=== PATIENT | female | born 1955 | race Caucasian/White ===

== ENCOUNTER 2018-05-08 07:11 | Day surgery (SDC) | payer OTHER ==
[2018-05-08] MEDS ORDERED: LACTATED RINGERS 1,000 ML IV ONE (07:29)
[2018-05-08] MEDS ORDERED: LIDOCAINE 1% 50 ML MDV ONE (07:30)
[2018-05-08] MEDS ORDERED: BUPIVACAINE 0.5%-EPI 1:200000 PF 10 ML VIAL ONE (07:31)
[2018-05-08] MEDS ORDERED: ceFAZolin 2 GM/50 ML 2 GM/50 ML BAG IV ONE (07:42)
[2018-05-08] MEDS ORDERED: SODIUM CHLORIDE FLUSH 0.9% 10 ML SYRINGE ONE ×2 (08:08→09:49)
[2018-05-08] MEDS ORDERED: LIDOCAINE-MPF 2% 5 ML VIAL IM ONE (08:30)
[2018-05-08] MEDS ORDERED: MIDAZOLAM 2 MG/2 ML VIAL IVP ONE (08:30)
[2018-05-08] MEDS ORDERED: fentaNYL 100 MCG/2 ML VIAL IVP ONE (08:30)
[2018-05-08] MEDS ORDERED: PROPOFOL 200 MG/20 ML VIAL IVP ONE (08:30)
[2018-05-08] MEDS ORDERED: BUPIVACAINE 0.5%-EPI 1:200000 PF 30 ML VIAL SUBQ ONE ×2 (09:10)
[2018-05-08] MEDS ORDERED: LIDOCAINE 1% 50 ML MDV SUBQ ONE ×2 (09:10)
[2018-05-08] MEDS ORDERED: IOTHALAMATE MEGLUMINE 50 ML VIAL IVP ONE (09:42)
[2018-05-08] MEDS ORDERED: IOTHALAMATE MEGLUMINE 50 ML VIAL ONE (09:49)
[2018-05-08] MEDS ORDERED: oxyCOD/ACETAMIN 5 MG/325 MG TABLET PO ONE (10:36)
[2018-05-08 10:52] VITALS: BP 138/63
--- NOTE | 2018-05-08 11:53 | XRAY Report ---
ONE VIEW CHEST X-RAY: 05/08/2018 HISTORY: Status post port placement. COMPARISON: None. FINDINGS: Clear lungs. The heart size is normal. There is no pleural fluid or pneumothorax. There is a right Port-A-Cath in place, the tip ending in the middle to inferior, 1/3 to the superior vena cava. IMPRESSION: CLEAR LUNGS. NO UNEXPECTED FINDING STATUS POST PORT PLACEMENT. TD: 05/08/2018 10:41 [facility]
--- NOTE | 2018-05-08 11:55 | XRAY Report ---
FLUOROSCOPIC ASSISTANCE: 05/08/2018 HISTORY: Port-A-Cath placement. FINDINGS/IMPRESSION: C-arm fluoroscopic assistance is provided for Port-A-Cath placement. 19 seconds of fluoroscopy time are used. Three images are obtained. TD: 05/08/2018 10:46
--- NOTE | 2018-05-08 17:06 | OPERATIVE REPORT ---
DATE OF SERVICE: 05/08/2018 Physician: James Sanchez MD PRE-PROCEDURE DIAGNOSIS: Endometrial cancer. POST-PROCEDURE DIAGNOSIS: Endometrial cancer. PROCEDURE PERFORMED: Placement of right internal jugular Port-A-Cath with ultrasound guidance. ANESTHESIA: Monitored anesthesia care (MAC). OPERATING SURGEON: James Sanchez MD INDICATION FOR PROCEDURE: Patient is a 62-year-old female who has endometrial cancer. She is needing IV access for chemotherapy. FINDINGS AT SURGERY: An 8-[place] single lumen PowerPort Port-A-Cath was placed via the right internal jugular vein under ultrasound guidance. The tip of the catheter was located in the distal SVC region. DESCRIPTION OF PROCEDURE: After informed consent was obtained, patient was taken to the operating room and placed in supine position. MAC anesthesia was administered. The patient's right neck and chest were then prepped and draped in usual sterile fashion. The internal jugular vein was then identified on the right side. The skin overlying the vein was then injected with local anesthesia. A location was located in the infraclavicular area several centimeters in the midclavicular area. The skin was then injected with local anesthesia. A transverse incision was then made in the skin using the scalpel and was carried down to the fascial layer using electrocautery. A pocket was then developed inferiorly. The port was then placed in the pocket and secured to the underlying fascia using interrupted 3-0 Prolene suture. The catheter was attached to the port. It was then tunneled up to the incision that was made in the neck overlying the internal jugular vein. The internal jugular vein was then identified using ultrasound. An 18-gauge needle was then inserted through this incision and into the internal jugular vein under direct vision. There was return of dark nonpulsatile blood. Guidewire was placed in the needle, and the needle was withdrawn. The catheter had been trimmed to appropriate size and flushed. A dilator and sheath was placed over the guidewire, and the guidewire and dilator was removed. The catheter was placed through the sheath, and peel-away sheath was then removed. Under fluoroscopy, the tip of the catheter was then located at the distal SVC region. There was good aspiration of blood, with it being flushed easily. Subcutaneous tissue was closed using a running 0 Vicryl suture. Skin incisions were closed using 4-0 Monocryl subcuticular stitch. Dermabond was then applied. The patient was then awakened, extubated, and taken from the operating room in stable condition. ESTIMATED BLOOD LOSS: Less than 5 mL. COMPLICATIONS: None. CONDITION OF THE PATIENT AT END OF PROCEDURE: Stable. ESTIMATED BLOOD LOSS: None. DRAINS/PACKS: None. CLASSIFICATION OF WOUND: Clean. TD: 05/08/2018 14:06 JUDY
== END 2018-05-08 07:12 | disposition home or self-care (01) ==
LOC: SDS 07:11
PROVIDERS: ATTEND Surgery
PROC: 05HM33Z Insertion of Infusion Device into Right Internal Jugular Vein, Percutaneous Approach (ICD-10-PCS; principal; 2018-05-08 08:15)
DX: C54.1 Malignant neoplasm of endometrium (principal)
CPT/HCPCS: 71045

== ENCOUNTER 2018-09-10 13:15 | Outpatient (CLI) | payer OTHER | END 2018-09-10 13:16 | disposition home or self-care (01) | LOC: CAM 13:15 | PROVIDERS: ATTEND Internal Medicine Hematology & Oncology | DX: G62.9 Polyneuropathy, unspecified (principal) | CPT/HCPCS: 97810; 97811 ==

== ENCOUNTER 2018-09-14 15:41 | Outpatient (CLI) | payer OTHER ==
[2018-09-14] MEDS ORDERED: IOPAMIDOL-300 50 ML VIAL ONE (15:49)
[2018-09-14] MEDS ORDERED: IOPAMIDOL-300 100 ML VIAL ONE (15:49)
[2018-09-14] MEDS ORDERED: IOPAMIDOL-300 50 ML VIAL PO ONE (17:10)
[2018-09-14] MEDS ORDERED: IOPAMIDOL-300 100 ML VIAL IVP ONE (17:10)
--- NOTE | 2018-09-15 02:17 | CT Report ---
Reason: MALIGNANT NEOPLASM OF MYOMETRIUM Procedure Date: 09/14/2018 Accession Number: [id number] / [id number] Procedure: CT - Abdomen/Pelvis W/ CPT Code: FULL RESULT: EXAM: CT ABDOMEN AND PELVIS WITH CONTRAST. EXAM DATE: 09/14/2018 05:06 PM. CLINICAL HISTORY: Endometrial carcinoma status post hysterectomy. Patient undergoing restaging prior to radiation therapy. COMPARISONS: None. TECHNIQUE: Routine helical CT imaging was performed through the abdomen and pelvis. IV contrast: ISOVUE 300 100 mL. Enteric contrast: No. Reconstructions: Coronal and sagittal. In accordance with CT protocol optimization, one or more of the following dose reduction techniques were utilized for this exam: automated exposure control, adjustment of mA and/or KV based on patient size, or use of iterative reconstructive technique. FINDINGS: Lung Bases: Small paraesophageal hernia. No cardiac enlargement. No effusions. Liver: Indeterminate 4 mm hypodensity in the right liver on image 20. No intrahepatic bile duct dilation. Gallbladder/Bile Ducts: Unremarkable. Spleen: Normal. Pancreas: Normal. Adrenal Glands: Normal. Kidneys: Normal. No masses or hydronephrosis. Peritoneal Cavity/Bowel: Normal. No free fluid, free air or adenopathy. No masses or acute inflammatory process. There are multiple diverticula seen which most severely affect the sigmoid colon. No wall thickening or adjacent inflammation seen. No obstruction noted. The appendix is well visualized and normal. Pelvic Organs: Uterus is absent. Normal bladder. No ascites. No collection, pelvic mass or adenopathy. Vasculature: No aneurysms or other significant abnormality. Bones: No significant abnormality. Other: None. IMPRESSION: 1. Status post hysterectomy. 2. No new adenopathy or ascites. 3. Diverticulosis. Normal appendix. No acute inflammation in the abdomen or pelvis. RADIA
== END 2018-09-14 15:42 | disposition home or self-care (01) ==
LOC: DI 15:41
PROVIDERS: ATTEND Radiology Therapeutic Radiology
DX: C54.2 Malignant neoplasm of myometrium (principal); K57.30 Diverticulosis of large intestine without perforation or abscess without bleeding; K44.9 Diaphragmatic hernia without obstruction or gangrene
CPT/HCPCS: 74177

== ENCOUNTER 2018-09-17 15:45 | Outpatient (CLI) | payer OTHER | END 2018-09-17 15:46 | disposition home or self-care (01) | LOC: CAM 15:45 | PROVIDERS: ATTEND Internal Medicine Hematology & Oncology | DX: G62.9 Polyneuropathy, unspecified (principal) | CPT/HCPCS: 97810; 97811 ==

== ENCOUNTER 2018-09-24 15:06 | Outpatient (CLI) | payer OTHER | END 2018-09-24 15:07 | disposition home or self-care (01) | LOC: CAM 15:06 | PROVIDERS: ATTEND Internal Medicine Hematology & Oncology | DX: G62.9 Polyneuropathy, unspecified (principal) | CPT/HCPCS: 97813; 97814 ==

== ENCOUNTER 2018-10-01 15:07 | Outpatient (CLI) | payer OTHER | END 2018-10-01 15:08 | disposition home or self-care (01) | LOC: CAM 15:07 | PROVIDERS: ATTEND Internal Medicine Hematology & Oncology | DX: G62.9 Polyneuropathy, unspecified (principal) | CPT/HCPCS: 97813; 97814 ==

== ENCOUNTER 2018-10-08 15:05 | Outpatient (CLI) | payer OTHER | END 2018-10-08 15:06 | disposition home or self-care (01) | LOC: CAM 15:05 | PROVIDERS: ATTEND Internal Medicine Hematology & Oncology | DX: G62.9 Polyneuropathy, unspecified (principal) | CPT/HCPCS: 97813; 97814 ==

== ENCOUNTER 2018-10-15 15:09 | Outpatient (CLI) | payer OTHER | END 2018-10-15 15:10 | disposition home or self-care (01) | LOC: CAM 15:09 | PROVIDERS: ATTEND Internal Medicine Hematology & Oncology | DX: G62.9 Polyneuropathy, unspecified (principal) | CPT/HCPCS: 97813; 97814 ==

== ENCOUNTER 2018-10-29 15:05 | Outpatient (CLI) | payer OTHER | END 2018-10-29 15:06 | disposition home or self-care (01) | LOC: CAM 15:05 | PROVIDERS: ATTEND Internal Medicine Hematology & Oncology | DX: G62.9 Polyneuropathy, unspecified (principal) | CPT/HCPCS: 97813; 97814 ==

== ENCOUNTER 2018-11-05 15:15 | Outpatient (CLI) | payer OTHER | END 2018-11-05 15:16 | disposition home or self-care (01) | LOC: CAM 15:15 | PROVIDERS: ATTEND Internal Medicine Hematology & Oncology | DX: G62.9 Polyneuropathy, unspecified (principal) | CPT/HCPCS: 97813; 97814 ==

== ENCOUNTER 2018-11-12 14:22 | Outpatient (CLI) | payer OTHER | END 2018-11-12 14:23 | disposition home or self-care (01) | LOC: CAM 14:22 | PROVIDERS: ATTEND Internal Medicine Hematology & Oncology | DX: G62.9 Polyneuropathy, unspecified (principal) | CPT/HCPCS: 97813; 97814 ==

== ENCOUNTER 2020-01-13 10:13 | Outpatient (CLI) | payer OTHER | END 2020-01-13 10:14 | disposition home or self-care (01) | LOC: LAB.S 10:13 | PROVIDERS: ATTEND Nurse Practitioner | DX: Z85.42 Personal history of malignant neoplasm of other parts of uterus (principal) | CPT/HCPCS: 36415; 86304 ==

== ENCOUNTER 2020-06-05 10:55 | Outpatient (CLI) | payer OTHER ==
--- NOTE | 2020-06-05 13:28 | CT Report ---
PROCEDURE: Low Dose Lung Cancer Screen INDICATIONS: HISTORY OF TABACCO USE TECHNIQUE: Noncontrast low-dose 5 mm thick sections acquired from the pulmonary apices to the posterior costophr enic angles. 7 mm thick coronal and sagittal MIP reformats were then acquired. For radiation dose r eduction, the following was used: automated exposure control, adjustment of mA and/or kV according t o patient size. COMPARISON: Chest single view 05/08/2018. FINDINGS: Image quality: Excellent. Lungs and pleura: Mild interstitial prominence consistent with history of long-standing smoking. No emphysematous change is found, however. Through the lung parenchyma no mass lesion is suspected. Mediastinum: Heart size is normal. No pericardial effusion. No mediastinal adenopathy by size crit eria. Thoracic aorta and central pulmonary arteries are normal in size. Esophagus is normal in claudette mari. No hiatal hernia. Bones and chest wall: No suspicious bony lesions. No vertebral body compression fractures. No axil dhruv or supraclavicular adenopathy by size criteria. The thyroid is normal in size. Abdomen: Visualized upper abdomen solid organs and bowel loops appear normal in the absence of contr ast. IMPRESSION: Normal except for mild interstitial prominence consistent with prior smoking history. Lung-RADS categ ory 1, follow-up low-dose noncontrast CT scanning in one year is recommended. Reviewed by: Hola Salinas MD on 06/05/2020 1:27 PM PDT Approved by: Hola Salinas MD on 06/05/2020 1:27 PM PDT Station ID: [id number]
== END 2020-06-05 10:56 | disposition home or self-care (01) ==
LOC: DI 10:55
PROVIDERS: ATTEND Registered Nurse
DX: Z12.2 Encounter for screening for malignant neoplasm of respiratory organs (principal); Z87.891 Personal history of nicotine dependence; Z85.42 Personal history of malignant neoplasm of other parts of uterus
CPT/HCPCS: 36415; 86304; G0297

== ENCOUNTER 2020-06-05 11:20 | Outpatient (CLI) | payer OTHER | END 2020-06-05 11:21 | disposition home or self-care (01) | LOC: LAB 11:20 | PROVIDERS: ATTEND Nurse Practitioner | DX: Z85.42 Personal history of malignant neoplasm of other parts of uterus (principal) | CPT/HCPCS: 36415; 86304 ==

== ENCOUNTER 2020-07-21 08:07 | Outpatient (CLI) | payer OTHER ==
--- NOTE | 2020-07-24 09:21 | Mammography Report ---
BILATERAL DIGITAL SCREENING MAMMOGRAM 3D/2D: 07/21/2020 CLINICAL: Routine screening. Comparison is made to exams dated: 04/03/2018 mammogram - [facility], 06/04/2005 [facility] - [facility], [facility]. The tissue of both breasts is extremely dense, which lowers the sensitivity of mammography. No significant masses, calcifications, or other findings are seen in either breast. There has been no significant interval change. IMPRESSION: NEGATIVE There is no mammographic evidence of malignancy. A 1 year screening mammogram is recommended. This exam was interpreted at Station ID: [id number]. NOTE: For mammograms, a report in lay terms will be sent to the patient. Approximately 15% of breast malignancies will not be visualized mammographically. In the management of a palpable breast mass, a negative mammogram must not discourage biopsy of a clinically suspicious lesion. Electronically Signed By: Wilver Michaels M.D., jr/trevin:07/21/2020 12:47:27 ACR BI-RADS Category 1: Negative 3341F PARENCHYMAL PATTERN: (VD) - The breast(s) demonstrate(s) extremely dense parenchyma, limiting the sen sitivity of mammography. BI-RADS CATEGORY: (1) - 1 RECOMMENDATION: (ANNUAL) - Recommend routine annual screening mammography. [id number] 1 year screening LATERALITY: (B)
== END 2020-07-21 08:08 | disposition home or self-care (01) ==
LOC: DI 08:07
PROVIDERS: ATTEND Registered Nurse
DX: Z12.31 Encounter for screening mammogram for malignant neoplasm of breast (principal)
CPT/HCPCS: 77063; 77067

== ENCOUNTER 2020-07-21 08:16 | Outpatient (CLI) | payer OTHER ==
[2020-07-21 09:30] LABS: RHEUMATOID FACTOR NEGATIVE (Negative)
[2020-07-24 10:41] LABS: ANA SCREEN NEGATIVE (NEGATIVE)
== END 2020-07-21 08:17 | disposition home or self-care (01) ==
LOC: LAB 08:16
PROVIDERS: ATTEND Registered Nurse
DX: G13.0 Paraneoplastic neuromyopathy and neuropathy (principal); M79.7 Fibromyalgia
CPT/HCPCS: 36415; 81599; 85651; 86038; 86140; 86430

== ENCOUNTER 2021-03-16 13:34 | Outpatient (CLI) | payer OTHER | END 2021-03-16 13:35 | disposition home or self-care (01) | LOC: LAB 13:34 | PROVIDERS: ATTEND Nurse Practitioner | DX: Z85.42 Personal history of malignant neoplasm of other parts of uterus (principal) | CPT/HCPCS: 36415; 86304 ==

== ENCOUNTER 2021-04-05 07:36 | Day surgery (SDC) | payer OTHER ==
[2021-04-05] MEDS ORDERED: LACTATED RINGERS 1,000 ML IV ONE ×2 (07:59→10:40)
[2021-04-05] MEDS ORDERED: MIDAZOLAM 2 MG/2 ML VIAL ONE ×2 (10:08→10:27)
[2021-04-05] MEDS ORDERED: fentaNYL 250 MCG/5 ML VIAL ONE (10:08)
[2021-04-05 11:09] VITALS: BP 125/82
== END 2021-04-05 07:37 | disposition home or self-care (01) ==
LOC: SDS 07:36
PROVIDERS: ATTEND Surgery
DX: Z12.11 Encounter for screening for malignant neoplasm of colon (principal); K57.30 Diverticulosis of large intestine without perforation or abscess without bleeding; K64.4 Residual hemorrhoidal skin tags; K64.8 Other hemorrhoids; C54.1 Malignant neoplasm of endometrium; Z87.891 Personal history of nicotine dependence; Z86.19 Personal history of other infectious and parasitic diseases
CPT/HCPCS: 45378; J3010; J7120

== ENCOUNTER 2021-04-26 13:13 | Outpatient (CLI) | payer OTHER ==
[2021-04-26 13:39] LABS: BASOPHILS % (AUTO) 0.4 %; EOSINOPHILS # (AUTO) 0.1 10^3/uL (0.0-0.7); EOSINOPHILS % (AUTO) 1.2 %; HCT - HEMATOCRIT 44.6 % (37.0-47.0); HGB - HEMOGLOBIN 14.8 g/dL (12.0-16.0); LYMPHOCYTES # (AUTO) 2.2 10^3/uL (1.5-3.5); LYMPHOCYTES % (AUTO) 32.5 %; MEAN CORPUSCULAR HEMOGLOBIN 29.6 pg (27.0-31.0); MEAN CORPUSCULAR HGB CONC 33.2 g/dL (32.0-36.0); MEAN CORPUSCULAR VOLUME 89.2 fL (81.0-99.0); MEAN PLATELET VOLUME 9.5 fL (7.9-10.8); MONOCYTES # (AUTO) 0.4 10^3/uL (0.0-1.0); MONOCYTES % (AUTO) 6.3 %; NEUTROPHILS # (AUTO) 4.1 10^3/uL (1.5-6.6); NEUTROPHILS % (AUTO) 59.3 %; PLT - PLATELET COUNT 221 10^3/uL (130-450); RED CELL DISTRIBUTION WIDTH 12.6 % (12.0-15.0); WHITE BLOOD COUNT 6.8 x10^3/uL (4.8-10.8)
[2021-04-26 13:55] LABS: ALKALINE PHOSPHATASE 69 IU/L (42-121); ALT ALANINE AMINOTRANSFERASE 17 IU/L (10-60); AST ASPARTATE AMINOTRANSFERASE 19 IU/L (10-42); BILIRUBIN,TOTAL 0.6 mg/dL (0.2-1.0); BUN - BLOOD UREA NITROGEN 18 mg/dL (6-20); CALCIUM 9.9 mg/dL (8.5-10.3); CARBON DIOXIDE - CO2 26 mmol/L (21-32); CHLORIDE 100 mmol/L (101-111); CHOL/HDL RATIO 3.1 (<4.4); CHOLESTEROL 248 mg/dL; CREATININE 0.8 mg/dL (0.4-1.0); GFR - MDRD 72 (>89); GLUCOSE 97 mg/dL (70-100); HDL CHOLESTEROL 81 mg/dL; LDL CHOLESTEROL,CALCULATED 152 mg/dL; LDL/HDL RATIO 1.9 (<4.4); POTASSIUM 4.2 mmol/L (3.5-5.0); SODIUM 136 mmol/L (135-145); TOTAL PROTEIN 7.5 g/dL (6.7-8.2); TRIGLYCERIDES 74 mg/dL; VLDL CHOLESTEROL 15 mg/dL
[2021-04-26 14:07] LABS: THYROID STIMULATING HORMONE 1.65 uIU/mL (0.34-5.60)
== END 2021-04-26 13:14 | disposition home or self-care (01) ==
LOC: LAB 13:13
PROVIDERS: ATTEND Registered Nurse
DX: D61.818 Other pancytopenia (principal); R73.9 Hyperglycemia, unspecified; Z87.891 Personal history of nicotine dependence; M79.7 Fibromyalgia
CPT/HCPCS: 36415; 80053; 80061; 83721; 84443; 85025

== ENCOUNTER 2021-08-13 13:01 | Emergency (ER) | payer OTHER ==
[2021-08-13 13:25] LABS: BASOPHILS % (AUTO) 0.4 %; EOSINOPHILS # (AUTO) 0.3 10^3/uL (0.0-0.7); EOSINOPHILS % (AUTO) 3.4 %; HCT - HEMATOCRIT 42.1 % (37.0-47.0); HGB - HEMOGLOBIN 13.9 g/dL (12.0-16.0); LYMPHOCYTES # (AUTO) 2.4 10^3/uL (1.5-3.5); LYMPHOCYTES % (AUTO) 32.6 %; MEAN CORPUSCULAR HEMOGLOBIN 29.6 pg (27.0-31.0); MEAN CORPUSCULAR VOLUME 89.6 fL (81.0-99.0); MEAN PLATELET VOLUME 9.4 fL (7.9-10.8); MONOCYTES # (AUTO) 0.5 10^3/uL (0.0-1.0); MONOCYTES % (AUTO) 7.4 %; NEUTROPHILS # (AUTO) 4.1 10^3/uL (1.5-6.6); NEUTROPHILS % (AUTO) 55.8 %; PLT - PLATELET COUNT 218 10^3/uL (130-450); RED CELL DISTRIBUTION WIDTH 12.7 % (12.0-15.0); WHITE BLOOD COUNT 7.3 x10^3/uL (4.8-10.8)
[2021-08-13 13:39] LABS: ALBUMIN 4.6 g/dL (3.2-5.5); ALBUMIN/GLOBULIN RATIO 1.6 (1.0-2.2); BILIRUBIN,TOTAL 0.7 mg/dL (0.2-1.0); CALCIUM 9.6 mg/dL (8.5-10.3); CREATININE 0.9 mg/dL (0.4-1.0); POTASSIUM 3.7 mmol/L (3.5-5.0); TOTAL PROTEIN 7.4 g/dL (6.7-8.2)
[2021-08-13] MEDS ORDERED: HYDROmorphone 0.5 MG/0.5 ML SYRINGE IVP STA (15:13)
[2021-08-13] MEDS ORDERED: ONDANSETRON 4 MG/2 ML VIAL IVP STA (15:13)
[2021-08-13] MEDS ORDERED: KETOROLAC 30 MG/ML VIAL IVP STA (15:13)
--- NOTE | 2021-08-13 15:16 | ED Physician Documentation ---
PD HPI ABD PAIN - Stated complaint Stated Complaint: ABD PX - Chief complaint Chief Complaint: Abd Pain - History obtained from History obtained from: Patient - Additional information Additional information: Patient comes emergency department chief complaint of right lower quadrant abdominal pain on and off for the last 2-1/2 days but steadily worsening. Patient states it is partly in her flank and partly in her right lower quadrant. She states she has had Mild persistent nausea, but only vomited once. No fevers. She has had a mild feeling of chills. No dysuria. No hematuria. No constipation or diarrhea. Patient still has her appendix and gallbladder, but no longer has her reproductive organs. She has a family history of urinary calculi but no personal history. No other complaints at this time. Review of Systems Ten Systems: 10 systems reviewed and negative Constitutional: reports: Reviewed and negative Eyes: reports: Reviewed and negative Ears: reports: Reviewed and negative Nose: reports: Reviewed and negative Throat: reports: Reviewed and negative Cardiac: reports: Reviewed and negative Respiratory: reports: Reviewed and negative GI: reports: Abdominal Pain, Nausea, Vomiting : reports: Reviewed and negative Skin: reports: Reviewed and negative Musculoskeletal: reports: Reviewed and negative Neurologic: reports: Reviewed and negative Psychiatric: reports: Reviewed and negative Endocrine: reports: Reviewed and negative Immunocompromised: reports: Reviewed and negative PD PAST MEDICAL HISTORY - Past Medical History Cardiovascular: None Respiratory: None Endocrine/Autoimmune: None GI: Hepatitis : None HEENT: None Psych: Claustrophobia Musculoskeletal: None Derm: None - Past Surgical History HEENT: Tonsil/Adenoidectomy - Present Medications Home Medications: Ambulatory Orders Medication Instructions Recorded Confirmed Multivitamin [Multivitamins] 1 each PO DAILY 12/28/18 12/28/18 Acetaminophen [Tylenol Extra 1,000 mg PO DAILY 04/05/21 04/05/21 Strength] HYDROcod/ACETAM 5/325 [[place] 5/325] 1 - 2 tablet PO Q6H PRN #14 tablet 08/13/21 Ondansetron Odt [Zofran Odt] 4 mg TL Q6H PRN #10 tablet 08/13/21 Tamsulosin [Flomax] 1 cap PO DAILY #7 cap 08/13/21 - Allergies Allergies/Adverse Reactions: Allergies Allergy/AdvReac Type Severity Reaction Status Date / Time Penicillins AdvReac Intermediate vomiting Verified 08/13/21 13:08 dermabond AdvReac Rash Uncoded 08/13/21 13:08 PD ED PE NORMAL - Vitals Vital signs reviewed: Yes - General General: Alert and oriented X 3, No acute distress, Well developed/nourished - HEENT HEENT: Atraumatic, PERRL, EOMI, Moist mucous membranes - Neck Neck: Supple, no meningeal sign - Cardiac Cardiac: RRR, No murmur, Strong equal pulses - Respiratory Respiratory: No respiratory distress, Clear bilaterally - Abdomen Abdomen: Soft, Non distended, Other (Moderate right flank tenderness, mild right lower quadrant tenderness) - Back Back: No spinal TTP, Other (Mild right CVA tenderness.) - Derm Derm: Normal color, Warm and dry, No rash - Extremities Extremities: No deformity, No edema - Neuro Neuro: Alert and oriented X 3, clay temperer 2-12 intact, Normal speech - Psych Psych: Normal mood, Normal affect Results - Vitals Vitals: Vital Signs - 24 hr 08/13/21 08/13/21 08/13/21 13:08 15:32 16:48 Temperature 36.5 C 36.5 C Heart Rate 60 55 L 55 L Respiratory 16 16 16 Rate Blood Pressure 160/72 H 212/97 H 180/86 H O2 Saturation 99 98 98 Oxygen O2 Source Room air - Labs Labs: Laboratory Tests 08/13/21 08/13/21 08/13/21 13:21 13:21 15:20 WBC 7.3 RBC 4.70 Hgb 13.9 Hct 42.1 MCV 89.6 MCH 29.6 MCHC 33.0 RDW 12.7 Plt Count 218 MPV 9.4 Neut # (Auto) 4.1 Lymph # (Auto) 2.4 [place] # (Auto) 0.5 Eos # (Auto) 0.3 Baso # (Auto) 0.0 Absolute Nucleated RBC 0.00 Nucleated RBC % 0.0 Sodium 140 Potassium 3.7 Chloride 103 Carbon Dioxide 26 Anion Gap 11.0 BUN 13 Creatinine 0.9 Estimated GFR (MDRD) 63 L Glucose 96 Calcium 9.6 Total Bilirubin 0.7 AST 22 ALT 24 Alkaline Phosphatase 69 Total Protein 7.4 Albumin 4.6 Globulin 2.8 Albumin/Globulin Ratio 1.6 Lipase 28 Urine Color YELLOW Urine Clarity CLEAR Urine pH 5.5 Ur Specific [place] 1.020 Urine Protein NEGATIVE Urine Glucose (UA) NEGATIVE Urine Ketones TRACE Urine Occult Blood MODERATE H Urine Nitrite NEGATIVE Urine Bilirubin NEGATIVE Urine Urobilinogen 0.2 (NORMAL) Ur Leukocyte Esterase NEGATIVE Urine RBC 6-10 H Urine WBC 0-3 Ur Squamous Epith Cells NONE SEEN Urine Bacteria None Seen Ur Microscopic Review INDICATED Urine Culture Comments NOT INDICATED - Rads (name of study) CT abdomen and pelvis Radiology: Final report received, EMP read indepedently, See rad report (3 mm Right UVJ stone obstructing.) PD MEDICAL DECISION MAKING - ED course Complexity details: reviewed results, re-evaluated patient, considered differential, d/w patient ED course: Patient was worked up with labs, which were unremarkable. CT scan of the abdomen and pelvis was also performed, and patient was treated symptomatically with IV Zofran, Dilaudid, and Toradol. Patient is found to have a small urinary calculus the distal right ureter at the UVJ. We have discussed symptomatic management and the high likelihood of passage without difficulty. We discussed conditions under which the patient should follow up with urology. Departure - Departure Disposition: 01 Home, Self Care Clinical Impression: Kidney stone on right side Condition: Stable Instructions: ED Stone Renal W Colic Follow-Up: Victor Hugo Guidry MD [Physician No Access] - Nga Cespedes MD [Provider Admit Priv/Credential] - Tripp Swift MD [Physician No Access] - iLam Garcia MD [Physician No Access] - Sebastian Urbano MD [Provider Admit Priv/Credential] - Prescriptions: Tamsulosin [Flomax] 1 cap PO DAILY #7 cap HYDROcod/ACETAM 5/325 [[place] 5/325] 1 - 2 tablet PO Q6H PRN #14 tablet PRN Reason: Pain Ondansetron Odt [Zofran Odt] 4 mg TL Q6H PRN #10 tablet PRN Reason: Nausea / Vomiting Comments: Your CT scan shows a small kidney stone that is making its way toward your bladder on the right. Fortunately, the stone has traveled most the way through the ureter, the tube that connects the kidney and bladder, and should be popping into your bladder soon. Once there, and will pass fairly easily and quickly. You may take the pain and nausea medicine as needed and also, the Flomax to help relax the smooth muscle of the tube and allow for a more free passage of the stone. It may take anywhere from some hours to several days to a week for the stone to finish passing. Once you have been pain-free for a few days, you can be fairly confident that the stone is passed. If you continue to have symptoms for more then the next couple of weeks, please follow-up with urology for further evaluation. Discharge Date/Time: 08/13/21 16:48
[2021-08-13] MEDS ORDERED: IOPAMIDOL-300 100 ML VIAL ONE (15:18)
[2021-08-13 15:37] LABS: BILIRUBIN,URINE NEGATIVE (NEGATIVE); GLUCOSE, URINE (UA) NEGATIVE (NEGATIVE); KETONES,URINE (UA) TRACE mg/dL (NEGATIVE); LEUKOCYTE ESTERASE, URINE NEGATIVE (NEGATIVE); NITRITE,URINE NEGATIVE (NEGATIVE); OCCULT BLOOD,URINE MODERATE (NEGATIVE); PH,URINE 5.5 PH (5.0-7.5); PROTEIN,URINE NEGATIVE (NEGATIVE); UROBILINOGEN,URINE 0.2 (NORMAL) E.U./dL (NORMAL)
[2021-08-13 15:38] LABS: CLARITY,URINE CLEAR (CLEAR)
[2021-08-13 15:59] LABS: BACTERIA,URINE None Seen /HPF (None Seen); SQUAMOUS EPITHELIAL CELL,UR NONE SEEN (<= Few); WBC,URINE 0-3 /HPF (0-5)
[2021-08-13] MEDS ORDERED: IOPAMIDOL-300 100 ML VIAL IVP ONE (16:03)
--- NOTE | 2021-08-13 16:14 | CT Report ---
PROCEDURE: Abdomen/Pelvis W INDICATIONS: RLQ abd pain CONTRAST: IV CONTRAST: Isovue 300 ml: 100 PO CONTRAST: Optiray 320 ml50 TECHNIQUE: After the administration of intravenous contrast, 5 mm thick sections acquired from the diaphragms to the symphysis. 5 mm thick coronal and sagittal reformats were acquired. For radiation dose reducti on, the following was used: automated exposure control, adjustment of mA and/or kV according to oscar ent size. COMPARISON: CT abdomen and pelvis 09/14/2018. FINDINGS: Image quality: Excellent. ABDOMEN: Lung bases: Lung bases are clear. Heart size is normal. Solid organs: Liver and spleen are normal in size and enhancement. Tiny cyst in the right lobe of li brea. Gallbladder is unremarkable. Biliary system is non dilated. Pancreas enhances normally. No a drenal nodules. Kidneys demonstrate normal size. There is mild right kidney hydroureteronephrosis. T here is an obstructing calculus at the right UVJ measuring 0.3 cm, (). Peritoneum and bowel: Bowel loops demonstrate normal wall thickness and caliber. Diverticulosis. Nor mal appendix. No free fluid or air. Nodes and vessels: No retroperitoneal or mesenteric adenopathy by size criteria. Aorta and inferior vena cava are normal in size. Miscellaneous: No ventral hernias. PELVIS: Genitourinary: Bladder is decompressed. Uterus is absent. Miscellaneous: No inguinal hernias or adenopathy. Bones: No suspicious bony lesions. No vertebral body compression fractures. IMPRESSION: 1. Obstructing calculus at the right UVJ measuring 0.3 cm. Mild right hydroureteronephrosis. 2. Normal appendix. No small bowel obstruction. Reviewed by: Derrick Yanes MD on 08/13/2021 3:12 PM AKDT Approved by: Derrick Yanes MD on 08/13/2021 3:12 PM AKDT Station ID: [id number]
[2021-08-13 16:49] VITALS: BP 180/86
== END 2021-08-13 16:48 | disposition home or self-care (01) ==
LOC: ED 13:01
DX: N13.2 Hydronephrosis with renal and ureteral calculous obstruction (principal)
CPT/HCPCS: 36415; 74177; 80053; 81001; 83690; 85025; 96374; 99284; J1170; Q9967; 81003; 87086

== ENCOUNTER 2021-11-08 11:55 | Outpatient (CLI) | payer OTHER | END 2021-11-08 11:56 | disposition home or self-care (01) | LOC: LAB 11:55 | PROVIDERS: ATTEND Nurse Practitioner | DX: Z85.42 Personal history of malignant neoplasm of other parts of uterus (principal); M25.50 Pain in unspecified joint; R23.4 Changes in skin texture | CPT/HCPCS: 36415; 81599; 86235; 86304 ==

== ENCOUNTER 2022-08-14 12:38 | Outpatient (CLI) | payer MEDICARE ==
--- NOTE | 2022-08-14 15:08 | CT Report ---
PROCEDURE: Low Dose Lung Cancer Screen INDICATIONS: POST MENOPAUSAL, HX OF SMOKING TECHNIQUE: Noncontrast low-dose axial images were acquired from the pulmonary apices to the posterior costophren ic angles. Multiplanar MIP reformats were then reconstructed. For radiation dose reduction, the follo wing was used: automated exposure control, adjustment of mA and/or kV according to patient size. COMPARISON: None. FINDINGS: Image quality: Excellent. Lungs and pleura: There are small nodular densities in small left lower lobe bronchi on image 256/4 as well as 260/4. These may potentially represent small mucous plugs. However, endobronchial lesions are not excluded. Another small endobronchial density is present in the right upper lobe on image 159 there is a 1 mm pulmonary nodule in the superior aspect of the right middle lobe on image 137/4. The re is a second 1 mm pulmonary nodule in the right middle lobe on image 145/4./4. Mild centrilobular e mphysema. Mediastinum: Heart size is normal. No pericardial effusion. Very mild coronary artery calcification s. No mediastinal adenopathy by size criteria. Thoracic aorta and central pulmonary arteries are no rmal in size. Esophagus is normal in caliber. No hiatal hernia. Bones and chest wall: No suspicious bony lesions. No vertebral body compression fractures. No axil dhruv or supraclavicular adenopathy by size criteria. The thyroid is normal in size and there are no incidental findings. Abdomen: Visualized upper abdomen solid organs and bowel loops appear normal in the absence of contr ast. IMPRESSION: Lung RAD: 3 - Probably Benign. Probably benign finding(s) - short term follow up suggested; includes nodules with a low likelihood of becoming a clinically active cancer. Recommendation: Recommend 3 month follow-up CT chest to document that these small endobronchial le sions are mucous plugs or that they potentially may be endobronchial nodules. CLINICAL RECOMMENDATION STATEMENTS: In patients <35 years with an ITN detected on CT, MRI, or extrathyroidal ultrasound, the Committee re commends further evaluation with dedicated thyroid ultrasound if the nodule is "e1 cm and has no susp icious imaging features, and if the patient has normal life expectancy. In patients "e35 years with an ITN detected on CT, MRI, or extrathyroidal ultrasound, the Committee r ecommends further evaluation with dedicated thyroid ultrasound if the nodule is "e1.5 cm and has no s uspicious imaging features, and if the patient has normal life expectancy. (ACR, 2014) Reviewed by: Mushtaq Jordan MD on 08/14/2022 3:07 PM PDT Approved by: Mushtaq Jordan MD on 08/14/2022 3:07 PM PDT Station ID: [id number]
--- NOTE | 2022-08-14 19:07 | DEXA Report ---
PROCEDURE: Dexa Spine and/or Hip INDICATIONS: POST MENOPAUSAL, HX OF SMOKING TECHNIQUE: Dual energy x-ray absorptiometry (DXA) was performed on a [employer] System. Regions measur ed are the AP Spine, femoral neck, and if needed forearm. COMPARISON: None. FINDINGS: Lumbar Spine: Bone Mineral Density 0.929 g/cm/cm,T score -2.1. Left Hip: Bone Mineral Density 0.746 g/cm/cm,T score - -2.1. Left Femoral Neck: Bone Mineral Density 0.703 g/cm/cm, T score -2.4. (T score greater or equal to -1.0: NORMAL) (T score from -1.1 to -2.4: OSTEOPENIA) (T score less than or equal to -2.5 to: OSTEOPOROSIS) Impression: Osteopenia. Patients with diagnosis of osteoporosis or osteopenia should have regular bone mineral density assess ment. For those eligible for Medicare, routine testing is allowed once every 2 years. Testing frequ ency can be increased for patients who have rapidly progressing disease or for those who are receivin g medical therapy to restore bone mass. Reviewed by: Duong Cruz MD on 08/14/2022 7:06 PM PDT Approved by: Duong Cruz MD on 08/14/2022 7:06 PM PDT Station ID: [id number]
== END 2022-08-14 12:39 | disposition home or self-care (01) ==
LOC: DI 12:38
PROVIDERS: ATTEND Registered Nurse
DX: Z12.2 Encounter for screening for malignant neoplasm of respiratory organs (principal); R91.8 Other nonspecific abnormal finding of lung field; M85.89 Other specified disorders of bone density and structure, multiple sites; Z78.0 Asymptomatic menopausal state; Z87.891 Personal history of nicotine dependence

== ENCOUNTER 2022-11-15 09:13 | Outpatient (CLI) | payer MEDICARE ==
--- NOTE | 2022-11-16 09:10 | CT Report ---
PROCEDURE: CHEST WO INDICATIONS: LUNG NODULES TECHNIQUE: Noncontrast 1mm axial images were acquired from the pulmonary apices to the posterior costophrenic an gles. Axial 5 mm soft tissue kernel reconstructions were performed as well as 8 mm axial MIP and cor onal and sagittal 5 mm reformations. For radiation dose reduction, the following was used: automate d exposure control, adjustment of mA and/or kV according to patient size. COMPARISON: CT chest without, 08/14/2022 and 06/05/2020. FINDINGS: Image quality: Excellent. Lungs and pleura: Small nodules are present. Reference nodules are listed in following: Nodule 1: 3 mm; left upper lobe; series 4 image 104. Nodule 2: 2 mm; left upper lobe; series 4 image 109. Nodule 3:4 mm; right upper lobe; series 4 image 107. Small intrabronchial lesions in the left lower lobe are no longer visualized. Biapical scars. No acute air space opacities. No pleural effusions or pneumothorax. Central and peripheral airways are patent and normal in caliber. Mediastinum: Heart size is normal. No pericardial effusion. There is a 0.8 cm substernal nodule in the superior mediastinum, demonstrating CT density similar to thyroid, probably a small substernal t hyroid tissue. Ultimately, it could represent a small lymph node. It is unchanged in size since 020. No mediastinal adenopathy by size criteria. Thoracic aorta and central pulmonary arteries are n ormal in size. Esophagus is normal in caliber. No hiatal hernia. Bones and chest wall: No suspicious bony lesions. No vertebral body compression fractures. No axil dhruv or supraclavicular adenopathy by size criteria. The thyroid is normal in size and there are no incidental findings. Abdomen: Visualized upper abdominal solid organs and bowel loops appear normal in the absence of con trast. IMPRESSION: 1. Interval resolution of small left lower lobe endobronchial nodules. 2. Multiple small pulmonary nodules are present bilaterally. ACR lung RADS category 2. Recommend shannan al screening lung CT in 12 months. Reviewed by: Colin Cr MD on 11/16/2022 9:08 AM PST Approved by: Colin Cr MD on 11/16/2022 9:08 AM PST Station ID: [id number]
== END 2022-11-15 09:14 | disposition home or self-care (01) ==
LOC: DI 09:13
PROVIDERS: ATTEND Registered Nurse
DX: R91.8 Other nonspecific abnormal finding of lung field (principal)

== ENCOUNTER 2023-04-18 12:55 | Outpatient (CLI) | payer MEDICARE ==
--- NOTE | 2023-04-21 10:37 | Mammography Report ---
BILATERAL DIGITAL SCREENING MAMMOGRAM 3D/2D: 04/18/2023 CLINICAL: Routine screening. Comparison is made to exams dated: 07/21/2020 mammogram - [facility], 04/03/2018 mamm ogram, 01/04/2013 mammogram - [facility], and 06/04/2005 mammogram - [facility]. Both breasts are extremely dense, which lowers the sensitivity of mammography (category d />75% gland ular tissue). No significant masses, calcifications, or other findings are seen in either breast. There has been no significant interval change. IMPRESSION: NEGATIVE There is no mammographic evidence of malignancy. A 1 year screening mammogram is recommended. Based on the Tyrer Cuzick model (a risk assessment model) the patients lifetime risk is 16.1% and he r 10 year risk is 7.9%. According to the ACR, ACS, and NCCN guidelines, an annual breast MRI exam karin ng with mammogram is recommended if the patients lifetime risk is 20% or greater. This exam was interpreted at Station ID: [id number]. NOTE: For mammograms, a report in lay terms will be sent to the patient. Approximately 15% of breast malignancies will not be visualized mammographically. In the management of a palpable breast mass, a negative mammogram must not discourage biopsy of a clinically suspicious lesion. Electronically Signed By: Johnson martínez/trevin:04/18/2023 13:38:15 letter sent: No_Letter ACR BI-RADS Category 1: Negative 3341F PARENCHYMAL PATTERN: (VD) - The breast(s) demonstrate(s) extremely dense parenchyma, limiting the sen sitivity of mammography. BI-RADS CATEGORY: (1) - 1 Mammogram [id number] 1 year screening LATERALITY: (B)
== END 2023-04-18 12:56 | disposition home or self-care (01) ==
LOC: DI 12:55
PROVIDERS: ATTEND Registered Nurse
DX: Z12.31 Encounter for screening mammogram for malignant neoplasm of breast (principal)

== ENCOUNTER 2023-04-29 08:23 | Outpatient (CLI) | payer MEDICARE ==
[2023-04-29 08:36] LABS: ABSOLUTE RETICS # AUTO 0.056 10^6/uL (0.020-0.110); BASOPHILS % (AUTO) 0.8 %; EOSINOPHILS # (AUTO) 0.1 10^3/uL (0.0-0.7); HCT - HEMATOCRIT 44.4 % (37.0-47.0); HGB - HEMOGLOBIN 14.5 g/dL (12.0-16.0); LYMPHOCYTES # (AUTO) 1.8 10^3/uL (1.5-3.5); LYMPHOCYTES % (AUTO) 35.2 %; MEAN CORPUSCULAR HEMOGLOBIN 28.5 pg (27.0-31.0); MEAN CORPUSCULAR HGB CONC 32.7 g/dL (32.0-36.0); MEAN CORPUSCULAR VOLUME 87.2 fL (81.0-99.0); MEAN PLATELET VOLUME 9.4 fL (7.9-10.8); MONOCYTES # (AUTO) 0.4 10^3/uL (0.0-1.0); MONOCYTES % (AUTO) 8.9 %; NEUTROPHILS # (AUTO) 2.6 10^3/uL (1.5-6.6); NEUTROPHILS % (AUTO) 52.9 %; PLT - PLATELET COUNT 201 10^3/uL (130-450); RED BLOOD COUNT 5.09 10^6/uL (4.20-5.40); RED CELL DISTRIBUTION WIDTH 12.8 % (12.0-15.0)
[2023-04-29 09:16] LABS: % IRON SATURATION 28 % (20-50); ALBUMIN 4.2 g/dL (3.2-5.5); ALBUMIN/GLOBULIN RATIO 1.4 (1.0-2.2); ALKALINE PHOSPHATASE 73 IU/L (42-121); ALT ALANINE AMINOTRANSFERASE 19 IU/L (10-60); AST ASPARTATE AMINOTRANSFERASE 20 IU/L (10-42); BILIRUBIN,TOTAL 0.8 mg/dL (0.2-1.0); BUN - BLOOD UREA NITROGEN 16 mg/dL (6-20); CALCIUM 9.5 mg/dL (8.5-10.3); CARBON DIOXIDE - CO2 26 mmol/L (21-32); CHLORIDE 107 mmol/L (101-111); CHOL/HDL RATIO 2.8 (<4.4); CHOLESTEROL 226 mg/dL; CREATININE 0.7 mg/dL (0.4-1.0); GFR - MDRD 84 (>89); GLUCOSE 112 mg/dL (70-100); HDL CHOLESTEROL 81 mg/dL; IRON 117 ug/dL (28-170); LDL CHOLESTEROL,CALCULATED 125 mg/dL; LDL/HDL RATIO 1.5 (<4.4); POTASSIUM 4.7 mmol/L (3.5-5.0); SODIUM 140 mmol/L (135-145); TOTAL IRON BINDING CAPACITY 412 ug/dL (250-450); TOTAL PROTEIN 7.2 g/dL (6.7-8.2); TRANSFERRIN 294 mg/dL (192-382); TRIGLYCERIDES 98 mg/dL; VLDL CHOLESTEROL 20 mg/dL
[2023-04-29 09:26] LABS: THYROID STIMULATING HORMONE 2.21 uIU/mL (0.34-5.60)
[2023-04-29 09:33] LABS: FERRITIN 28.9 ng/mL (11.0-306.8)
[2023-04-29 09:37] LABS: FOLATE 19.41 ng/mL (5.90 - >24.8)
== END 2023-04-29 08:24 | disposition home or self-care (01) ==
LOC: LAB 08:23
PROVIDERS: ATTEND Registered Nurse
DX: G62.9 Polyneuropathy, unspecified (principal); G25.81 Restless legs syndrome; Z13.228 Encounter for screening for other metabolic disorders; Z13.220 Encounter for screening for lipoid disorders
CPT/HCPCS: 36415; 80053; 80061; 82607; 82728; 82746; 83540; 83721; 84443; 84466; 85025; 85045